=== PATIENT | male | born 1990 ===

== ENCOUNTER 2016-05-07 21:40 | Emergency (ER) | payer OTHER ==
[~2016-05-07] VITALS: Ht 175.3 cm; Wt 127.3 kg
[~2016-05-07 21:40] MED LIST: AMOX500T2 PO
[2016-05-07 21:47] VITALS: BP 143/82; PULSE 132; RESP 24; O2SAT 93
--- NOTE | 2016-05-07 22:15 | ED.REPORT ---
HPI-Dyspnea / Wheezing Date of Service May 07, 2016 ED Provider: Julio C Gillis MD Patient is a 25 year old male who presents to the ED with flu-like symptoms that began yesterday. He admits to associated cough, runny nose, fever (37.8C in the ED), chills, myalgias, nausea, vomiting, and mild epigastric abdominal pain. Patient reports pain with deep breath and with cough. He denies diarrhea. The patient did not receive his seasonal influenza vaccination this year. He has had contact with several children recently who were also sick. Nursing Notes Stated Complaint: POSSIBLE FLU Chief Complaint: FLU/Cold Symptoms Nursing Notes Reviewed: Yes Allergies: Coded Allergies: lactose (Verified Allergy, Unknown, 05/07/16) Scheduled Amoxicillin (Amoxicillin) 500 Mg Tablet 500 MG PO BID Oseltamivir Phosphate (Tamiflu) 75 Mg Capsule 75 MG PO BID General Time Seen by MD: 22:07 Chief Complaint Other (flu-like symptoms) Hx Obtained From: Patient Arrived By: Walk-in Sudden in Onset?: No Onset Occurred: Yesterday Location: : Chest left: Chest right Quality: Painful Severity: Current: Mild Severity: Maximum: Moderate Recent Healthcare: No recent doctor visit, No recent hospitalization Similar Sx Previous: No Past Medical History Past Medical History None Reports: Depression Past Surgical History None Family History Noncontributory Smoking History Current Every Day Smoker Social History Alcohol Use: Denies alcohol use Drug Use: THC Other Social History: Good social support, Local resident Ambulatory Status Independent Review of Systems Constitutional: Reports: Chills, Fever Ears / Nose / Throat: Reports: Nasal congestion, Denies: Throat pain Respiratory: Reports: Non-productive cough, Pleuritic pain Musculoskeletal: Reports: Myalgia Complete sys rev & neg: except as marked. GI: Reports: Abdominal pain, Nausea, Vomiting Physical Exam Initial Vital Signs Vital Signs (First) Date Time Temp Pulse Resp B/P Pulse Ox O2 Delivery O2 Flow Rate FiO2 05/07/16 21:47 37.8 132 24 143/82 93 Room Air Initial VS: Reviewed Head / Eyes: Atraumatic, Normocephalic, PERRL Extremities: Vascular intact, Neuro intact Skin: Warm, Dry, No cyanosis Neurologic: Alert, Oriented, Nonfocal Psychiatric: Mood/affect normal, Behavior normal, Normal thought content General/Constitutional: Awake, Alert, No acute distress Appearance / Presentation: Positive: Obese Neck: Supple, Full range of motion Respiratory / Chest: Breath sounds NL, Breath sounds = bilat, No respiratory distress, No rales, No rhonchi, No wheezing Cardiovascular: Heart rate NL, No murmurs Heart Rate / Rhythm: Positive: Tachycardia ENT: Airway patent, Mucous membranes moist, Pharynx NL Abdomen: Soft, No guarding, No rebound Tenderness/Guarding/Rebound: Positive: Tender LUQ... (Mild), Negative: Tender RLQ... Interpretation & Diagnostics Interpretation & Diagnostics: Rapid Influenza Screen: Positive for influenza A, negative for influenza B. X-Ray Chest Interpretation Chest Xray Interpretation: Impression: No acute cardiopulmonary process. View: Portable Interpretation / Wet Read by: Wet read ED physician Re-Eval/Medical Decision Med Decision/Clinical Course 25-year-old male presenting complaining of cough congestion and fevers times one day. Initially tachycardic to 130s. Given 1 L normal saline with heart rate much improved to low 100s. Influenza A positive. Patient was given dose of Tamiflu here and will complete a five-day course. Return precautions given. Source of Hx: Old records Re-Evaluation/Progress : Time of Eval: 23:19 Patient Status: Condition improved Re-Evaluation/Progress Note: Influenza screen was positive. Offered the patient Tamiflu. Chest x-ray was negative. Patient understands and agrees with the plan to be discharged home. Discharge instructions and follow-up discussed. All questions were addressed. Return to the ED warnings given. Counseled Regarding: Diagnosis, Need for follow-up, When/why to return to ED Discharge & Departure Impression: Primary Impression: Influenza A Disposition: Home Discharge Condition All VS Reviewed: Yes Condition: Stable Patient Instructions: Influenza (ED) Additional Instructions: Your influenza swab was positive for influenza A. Your chest x-ray was negative. Follow-up with your doctor in the next week. You will likely continue to feel ill for the next week. Take Tamiflu as instructed for the next 5 days. You were given your first dose tonight. Return to the emergency department if you develop worsening fever, shortness of breath, chest pain, vomiting, or any other concerning symptoms. Referrals: [facility] Scribe Attestation Portions of this note were transcribed by Alexus Gomez. I, Dr. Gillis personally performed the history, physical exam and medical decision-making; I reviewed and confirmed the accuracy of the information in the transcribed note. Signed by: Halima Back, 05/07/2016 1122 copies to: [facility] Julio C Gillis MD May 07, 2016 22:15 Alexus Gomez May 07, 2016 22:22
[2016-05-07] MEDS ORDERED: 0.9% Sodium Chloride 1,000 ML IV ONE (22:20)
[2016-05-07 23:05] VITALS: PULSE 118; RESP 20; O2SAT 93
[2016-05-07] MEDS ORDERED: TAM75UDCAP PO (23:29)
[2016-05-07 23:32] VITALS: BP 135/75; PULSE 112; RESP 20; O2SAT 96
[2016-05-07 23:42] VITALS: BP 135/75; PULSE 112; RESP 20; O2SAT 96
--- NOTE | 2016-05-08 07:58 | DRSVH ---
PROCEDURE: X-RAY CHEST ONE VIEW, PORTABLE ([id number]) INDICATIONS: cough TECHNIQUE: One view of the chest was acquired. COMPARISON: None. FINDINGS: Surgical changes and devices: None. Lungs and pleura: No pleural effusions or pneumothorax. Lungs are clear. Mediastinum: Mediastinal contours appear normal. Heart size is normal. Bones and chest wall: No suspicious bony lesions. Overlying soft tissues appear unremarkable. IMPRESSION: 1. No acute cardiopulmonary disease. Dictated by: Layo Key M.D. on 05/08/2016 at 7:56 Approved by: Layo Key M.D. on 05/08/2016 at 7:56
== END 2016-05-07 23:42 | disposition home or self-care (01) ==
LOC: SED 21:40
DX: J10.1 Influenza due to other identified influenza virus with other respiratory manifestations (principal); F17.200 Nicotine dependence, unspecified, uncomplicated; F12.10 Cannabis abuse, uncomplicated; Z91.011 Allergy to milk products
CPT/HCPCS: 71010; 87804; 96360; 99284; J7030